=== PATIENT | female | born 1985 | race Caucasian/White ===

== ENCOUNTER 2018-05-19 17:43 | Emergency (ER) | payer OTHER ==
[~2018-05-19] VITALS: Ht 160 cm; Wt 77.1 kg
[2018-05-19] MEDS ORDERED: LIBRAX CAPSULE1 EACH PO (17:59)
[2018-05-19] MEDS ORDERED: FLEXERIL PO (18:00)
[2018-05-19] MEDS ORDERED: GARLIC1 EACH PO (18:00)
[2018-05-19] MEDS ORDERED: VALIUM5 MG PO (18:00)
[2018-05-19] MEDS ORDERED: WELLBUTRIN 100100 MG PO (18:00)
[2018-05-19] MEDS ORDERED: MICROGESTIN1 EAC1 PO (18:00)
[2018-05-19] MEDS ORDERED: CENTRUM SILVER1 EAC2 PO (18:00)
[2018-05-19] MEDS ORDERED: PROPRANOLOL 20M20 M1 PO (18:01)
[2018-05-19] MEDS ORDERED: LIDOCAINE VISC100 ML SWISH&SPIT (18:14)
[2018-05-19] MEDS ORDERED: HYDROCODONE-AP1 EAC6 PO (18:14)
[2018-05-19 18:53] VITALS: BP 140/80
== END 2018-05-19 18:54 | disposition home or self-care (01) ==
LOC: M.ERS 17:43
DX: S00.522A Blister (nonthermal) of oral cavity, initial encounter (principal); Z88.1 Allergy status to other antibiotic agents; X58.XXXA Exposure to other specified factors, initial encounter; Y93.89 Activity, other specified; Y92.89 Other specified places as the place of occurrence of the external cause; Y99.8 Other external cause status

== ENCOUNTER 2018-08-04 22:44 | Emergency (ER) | payer OTHER ==
[~2018-08-04] VITALS: Ht 160 cm; Wt 79.4 kg
[~2018-08-04 22:44] MED LIST: CENTRUM SILVER1 EAC2 PO; FLEXERIL PO; GARLIC1 EACH PO; HYDROCODONE-AP1 EAC6 PO; LIBRAX CAPSULE1 EACH PO; LIDOCAINE VISC100 ML SWISH&SPIT; MICROGESTIN1 EAC1 PO; PROPRANOLOL 20M20 M1 PO; VALIUM5 MG PO; WELLBUTRIN 100100 MG PO
[2018-08-04] MEDS ORDERED: DEPAKOTE500 MG PO (22:58)
[2018-08-04] MEDS ORDERED: WELLBUTRIN XL300 MG PO (22:58)
[2018-08-04] MEDS ORDERED: FLEXERIL PO (22:58)
[2018-08-04] MEDS ORDERED: LIBRAX (22:58)
[2018-08-04] MEDS ORDERED: GABAPENTIN 100100 MG PO (22:59)
[2018-08-04] MEDS ORDERED: JUNEL FE 1-201 EACH PO (22:59)
[2018-08-04] MEDS ORDERED: MULTIVITAMINS1 EAC7 PO (22:59)
[2018-08-04] MEDS ORDERED: GARLIC1 EACH PO (22:59)
[2018-08-04] MEDS ORDERED: IRON325 PO (22:59)
[2018-08-04] MEDS ORDERED: PROPRANOLOL 1010 MG PO (23:00)
[2018-08-04 23:23] LABS: HEMATOCRIT 38.6 % (37.0-47.0); HEMOGLOBIN 12.8 gm/dL (12.0-15.0); MCH 32.8 pg (26.0-34.0); MCHC 33.3 g/dL (28.0-37.0); MCV 98.5 fL (80.0-100.0); MPV 7.6 fl. (7.2-11.1); NUCLEATED RBCS 0 /100WBC; PLATELET COUNT* 242 thou/uL (150-400); RBC 3.91 mil/uL (4.20-5.00); RDW-CV 13.3 % (10.5-14.5); WBC 14.5 thou/uL (4.0-11.0)
[2018-08-04 23:28] LABS: URINE BILIRUBIN NEGATIVE (Negative); URINE BLOOD 2+ (Negative); URINE CLARITY SL CLOUDY; URINE COLOR YELLOW; URINE GLUCOSE-RANDOM NEGATIVE (Negative); URINE KETONES TRACE (Negative); URINE PROTEIN 2+ (Negative)
[2018-08-04 23:29] LABS: CALCIUM 8.5 mg/dL (8.5-10.1); POTASSIUM 3.6 mmol/L (3.5-5.1)
[2018-08-04 23:32] LABS: URINE LEUKOCYTES-REFLEX 3+ (Negative); URINE NITRITE-REFLEX POSITIVE (Negative)
[2018-08-04 23:34] LABS: ALBUMIN 2.9 g/dL (3.4-5.0); TOTAL BILIRUBIN 0.3 mg/dL (<0.1-1.0); TOTAL PROTEIN 7.1 g/dL (6.4-8.2)
[2018-08-04 23:41] LABS: CASTS None Seen /LPF (None Seen); SQUAMOUS 4-10 Moderate /LPF (0-3)
[2018-08-04 23:42] LABS: BACTERIA-REFLEX >30 Many /HPF (None Seen); CRYSTALS None Seen /LPF (None Seen); URINE RBC 3-10 Few /HPF (0-2); URINE WBC-REFLEX >25 Many /HPF (0-5)
[2018-08-05] MEDS ORDERED: ZOFRAN ODT4 MG PO (00:05)
[2018-08-05] MEDS ORDERED: KEFLEX500 M1 PO (00:05)
[2018-08-05] MEDS ORDERED: NORCO 5-325 TA1 EACH PO (00:05)
[2018-08-05 00:16] VITALS: BP 133/84
[2018-08-05 00:49] LABS: ABSOLUTE BASOPHILS 0.1 thou/uL (0.0-0.2); ABSOLUTE LYMPHOCYTES 0.7 thou/uL (0.8-5.3); ABSOLUTE MONOCYTES 0.1 thou/uL (0.0-1.2); ABSOLUTE NEUTROPHILS 13.5 thou/uL (1.6-8.1); PLATELET ESTIMATE ADEQUATE
== END 2018-08-05 00:16 | disposition home or self-care (01) ==
LOC: M.ERS 22:44
PROVIDERS: Emergency Medicine Emergency Medical Services
DX: N12 Tubulo-interstitial nephritis, not specified as acute or chronic (principal); N80.9 Endometriosis, unspecified; Z88.1 Allergy status to other antibiotic agents; Z88.8 Allergy status to other drugs, medicaments and biological substances

== ENCOUNTER 2018-08-11 05:17 | Inpatient (IN) | payer OTHER, MEDICAID ==
[~2018-08-11] VITALS: Ht 160 cm; Wt 79.4 kg
[~2018-08-11 05:17] MED LIST changes: +DEPAKOTE500 MG PO; +GABAPENTIN 100100 MG PO; +IRON325 PO; +JUNEL FE 1-201 EACH PO; +KEFLEX500 M1 PO; +LIBRAX; +MULTIVITAMINS1 EAC7 PO; +NORCO 5-325 TA1 EACH PO; +PROPRANOLOL 1010 MG PO; +WELLBUTRIN XL300 MG PO; +ZOFRAN ODT4 MG PO
[2018-08-11 05:28] VITALS: BP 117/75
[2018-08-11 05:41] LABS: URINE BILIRUBIN NEGATIVE (Negative); URINE BLOOD NEGATIVE (Negative); URINE CLARITY CLEAR; URINE COLOR YELLOW; URINE GLUCOSE-RANDOM NEGATIVE (Negative); URINE KETONES NEGATIVE (Negative); URINE LEUKOCYTES-REFLEX NEGATIVE (Negative); URINE NITRITE-REFLEX NEGATIVE (Negative); URINE PROTEIN TRACE (Negative); URINE SPECIFIC GRAVITY 1.025 (1.005-1.030)
[2018-08-11 06:02] LABS: HEMATOCRIT 31.3 % (37.0-47.0); HEMOGLOBIN 9.9 gm/dL (12.0-15.0); MCH 32.5 pg (26.0-34.0); MCHC 31.6 g/dL (28.0-37.0); MCV 102.6 fL (80.0-100.0); MPV 7.5 fl. (7.2-11.1); NUCLEATED RBCS 0 /100WBC; PLATELET COUNT* 286 thou/uL (150-400); RBC 3.05 mil/uL (4.20-5.00); RDW-CV 13.9 % (10.5-14.5)
[2018-08-11 06:07] LABS: ANION GAP 9 mmol/L (7-16); BUN 15 mg/dL (7-18); CALCIUM 8.2 mg/dL (8.5-10.1); CHLORIDE 107 mmol/L (98-107); CO2 25 mmol/L (21-32); GLUCOSE 74 mg/dL (70-99); POTASSIUM 4.4 mmol/L (3.5-5.1); SODIUM 141 mmol/L (136-145)
[2018-08-11 06:14] LABS: ALBUMIN 2.2 g/dL (3.4-5.0); ALKALINE PHOSPHATASE 46 U/L (46-116); LIPASE 109 U/L (73-393); SGOT 12 U/L (15-37); SGPT 13 U/L (30-65); TOTAL BILIRUBIN 0.1 mg/dL (<0.1-1.0); TOTAL PROTEIN 6.7 g/dL (6.4-8.2); TROPONIN-I LEVEL <0.06 ng/mL (<0.06)
[2018-08-11 06:26] LABS: AMP/METHAMP Negative (Negative); BARBITURATES Negative (Negative); BENZODIAZEPINES POSITIVE (Negative); COCAINE Negative (Negative); METHADONE Negative (Negative); OPIATES POSITIVE (Negative); PCP Negative (Negative); THC Negative (Negative)
[2018-08-11 06:44] LABS: ABSOLUTE BASOPHILS 0.1 thou/uL (0.0-0.2); ABSOLUTE EOSINOPHILS 0.3 thou/uL (0.0-0.7); ABSOLUTE LYMPHOCYTES 3.8 thou/uL (0.8-5.3); ABSOLUTE MONOCYTES 0.3 thou/uL (0.0-1.2); ABSOLUTE NEUTROPHILS 8.6 thou/uL (1.6-8.1); ATYPICAL LYMPHS 3 %; METAMYELOCYTES 8 %
[2018-08-11 06:47] LABS: PLATELET ESTIMATE ADEQUATE
[2018-08-11 10:18] VITALS: BP 109/61
[2018-08-11 10:46] VITALS: BP 130/52
--- NOTE | 2018-08-11 11:43 | EKG ---
[place] [address] ELECTROCARDIOGRAM REPORT Name: REA ONTIVEROS Room: [address] IN .R.#: [id number] Admission: 08/11/18 Attend Phys: Jeremy Willams, Discharge: Date of : 87 Report #: [id number] THIS REPORT FOR: //name// [facility] ED Test Date: 2018-08-11 Test Time: 06:12:59 Pat Name: REA ONTIVEROS Department: Room: [facility] Gender: F Account Auditor: : 1985 Requested By: Kelly David Order Number: [id number] MD: Seven Godfrey Measurements Intervals Rentz Rate: 87 P: 10 NJ: 134 QRS: 9 QRSD: 96 T: 11 QT: 360 QTc: 433 Interpretive Statements Sinus rhythm Borderline T abnormalities, anterior leads No previous ECG available for comparison Electronically Signed On 08-11-2018 11:43:09 CDT by Seven Godfrey [email or web address] <ELECTRONICALLY SIGNED> By: eSven Godfrey MD, [facility] 08/11/18 1143 1 1 Seven Godfrey MD, FAC /EPI
--- NOTE | 2018-08-11 14:25 | NUR ---
ALERT AND ORIENTED X4. UP STAND BY ASSIST IN ROOM. IV IS PATENT AND INFUSING. PAIN BEING MANAGED WITH IV PAIN MEDICATION. DENIES NAUSEA. VSS ON ROOM AIR. HOURLY ROUNDS HAVE BEEN MAINTAINED SINCE ARRIVING ON UNIT. CALL LIGHT IS WITHIN REACH. NURSING WILL CONTINUE TO MONITOR.
--- NOTE | 2018-08-11 14:26 | NUR ---
PATIENT ARRIVED TO UNIT AT 1030. ALERT AND ORIENTED X4. UP STAND BY ASSIST TO THE BATHROOM. IV IS PATENT AND INFUSING. PAIN BEING MANAGED WITH IV MEDICATION. DENIES NAUSEA AT THIS TIME, RECIEVED IV NAUSEA MEDICATION IN THE ER. VSS ON ROOM AIR. PATIENT HAS BEEN ORIENTED TO ROOM. CALL LIGHT IS WITHIN REACH. NURSING WILL CONTINUE TO MONITOR.
[2018-08-11 17:13] VITALS: BP 100/61
--- NOTE | 2018-08-11 19:07 | NUR ---
RECIEVED REPORT FROM ONOFRE AT 1500. AGREE WITH PREVIOUS NURSE. PAIN WELL CONTROLLED WITH PAIN MEDS. ADVANCED TO REG DIET, NO NAUSEA AND VOMITING. WALKED THE HALLS. COMPLETED HOURLY ROUNDING. CALL LIGHT WITHIN REACH. WILL CONTINUE TO MONITOR.
[2018-08-11 20:21] LABS: HEMATOCRIT 27.1 % (37.0-47.0); HEMOGLOBIN 9.1 gm/dL (12.0-15.0); MCH 32.9 pg (26.0-34.0); MCHC 33.6 g/dL (28.0-37.0); MCV 97.8 fL (80.0-100.0); MPV 7.3 fl. (7.2-11.1); RBC 2.77 mil/uL (4.20-5.00); RDW-CV 13.1 % (10.5-14.5); WBC 12.8 thou/uL (4.0-11.0)
[2018-08-11 20:30] VITALS: BP 85/54
[2018-08-11 23:40] VITALS: BP 88/43
[2018-08-12 00:43] VITALS: BP 96/43
[2018-08-12 04:00] VITALS: BP 101/54; BP 102/48; BP 91/51
[2018-08-12 04:22] LABS: HEMATOCRIT 28.7 % (37.0-47.0); HEMOGLOBIN 9.4 gm/dL (12.0-15.0); MCH 32.4 pg (26.0-34.0); MCHC 32.7 g/dL (28.0-37.0); MCV 99.1 fL (80.0-100.0); MPV 7.5 fl. (7.2-11.1); PLATELET COUNT* 318 thou/uL (150-400); RBC 2.89 mil/uL (4.20-5.00); RDW-CV 13.2 % (10.5-14.5); WBC 13.6 thou/uL (4.0-11.0)
[2018-08-12 04:38] LABS: CALCIUM 7.7 mg/dL (8.5-10.1); CREATININE 0.8 mg/dL (0.6-1.3); MAGNESIUM 1.6 mg/dL (1.8-2.4); TOTAL BILIRUBIN 0.1 mg/dL (<0.1-1.0); TOTAL PROTEIN 6.2 g/dL (6.4-8.2)
[2018-08-12 06:08] LABS: APTT 29.1 Seconds (25.0-31.3); PROTIME 10.3 Seconds (9.20-11.50)
[2018-08-12 06:16] LABS: ABSOLUTE NEUTROPHILS 8.7 thou/uL (1.6-8.1); POLYS 64.3 %
[2018-08-12 06:17] LABS: ABSOLUTE BASOPHILS 0.1 thou/uL (0.0-0.2); ABSOLUTE EOSINOPHILS 0.1 thou/uL (0.0-0.7); ABSOLUTE LYMPHOCYTES 3.6 thou/uL (0.8-5.3); ABSOLUTE MONOCYTES 1.1 thou/uL (0.0-1.2); BASOPHILS 0.4 %; EOSINOPHILS 0.8 %; LYMPHOCYTES 26.5 %
--- NOTE | 2018-08-12 06:45 | NUR ---
ASSUMED PT CARE AT 2014. NURSING ASSESSMENT COMPLETED. PT C/O PAIN. SEE EMAR FOR DOCUMENTATION. PT TEMP 101.1 AT 0400. SEPSIS SCREENING COMPLETED AT 0447. PT POSITIVE FOR SEPSIS. DR. TRAYLOR NOTIFIED. NEW ORDERS RECEIVED. ID CONSULT. HOURLY ROUNDING COMPLETED. CALL LIGHT WITHIN REACH.
[2018-08-12 15:59] VITALS: BP 97/55
--- NOTE | 2018-08-12 16:46 | NUR ---
ASSUMED CARE OF PATIENT AT APPROX 0800. ALERT AND ORIENTED X4. ASSESSMENT COMPLETED AND CHARTED. VSS ON ROOM AIR. PATIENT HAS HAD MANY COMPLAINTS THROUGHOUT THE SHIFT FOR THIS NURSE, CALLING MULTIPLE TIMES AND ASKING THE SAME QUESTIONS REPEATEDLY. PHYSICIANS CONTACTED AND SPOKE TO PATIENT ABOUT HER QUESTIONS. DR AGUILAR ADDED XANAX TO PATIENTS MEDICATON TO ADDRESS HER ANXIETY. PAIN AND NAUSEA HAVE BEEN MANAGED WITH MEDICATIONS. NO COMPLAINTS OF SOA. HOURLY ROUNDS MAINTAINED, CALL LIGTH WITHIN REACH, NURSING WILL CONTINUE TO MONITOR.
[2018-08-12 20:00] VITALS: BP 80/49
[2018-08-13 04:37] LABS: HEMATOCRIT 26.6 % (37.0-47.0); HEMOGLOBIN 8.9 gm/dL (12.0-15.0); MCHC 33.4 g/dL (28.0-37.0); MCV 98.9 fL (80.0-100.0); MPV 7.5 fl. (7.2-11.1); RBC 2.69 mil/uL (4.20-5.00); RDW-CV 12.8 % (10.5-14.5); WBC 10.7 thou/uL (4.0-11.0)
[2018-08-13 06:05] LABS: CALCIUM 7.7 mg/dL (8.5-10.1); CREATININE 0.8 mg/dL (0.6-1.3); MAGNESIUM 1.6 mg/dL (1.8-2.4); POTASSIUM 4.4 mmol/L (3.5-5.1)
--- NOTE | 2018-08-13 06:49 | NUR ---
PATIENT HAS BEEN RESTLESS OFF AND ON DURING SHIFT. PAIN MEDICATION GIVEN ORDERED AND CHARTED. VSS ON RA, ALTHOUGH BP WAS LOW AND NOTIFIED AND BOLUS GIVEN. IV IN RIGHT AC-NS @ 150ML/HR. PATIENT INSTRUCTED TO USE CALL LIGHT WHEN NEEDING ASSISTANCE. HOURLY ROUNDS MADE. WILL CONTINUE WITH PLAN OF CARE AND NURSING TO MONITOR.
--- NOTE | 2018-08-13 10:49 | CON ---
[address] [address] CONSULTATION Name: RAMAREA Smith Room: [address] IN ..#: [id number] Admission: 08/11/18 Attend Phys: Jeremy Willams, Discharge: Date of : 87 Report #: [id number] THIS REPORT FOR: //name// CC: Shaun CASTELLON Physician staff Jeremy Willams DATE OF SERVICE: 08/12/2018 UROLOGY CONSULTATION REFERRING PHYSICIAN: Dr. Willams. REASON FOR CONSULTATION: Right renal lesion. HISTORY OF PRESENT ILLNESS: This is a 32-year-old female admitted with multiple medical problems. She complains of approximately 1 week history of right-sided flank pain and abdominal pain. She denies dysuria or hematuria. She said she had fever to 103 at home. She reports urinary frequency and urgency, but denies a sensation of incomplete emptying. She states she has had UTIs in the past. She also states she has had kidney stones in the past, but has not required procedures for these. Urology was consulted regarding a right renal lesion noted on imaging. The patient does not have any prior knowledge of this. She denies any history of renal surgery or urinary tract surgery. She has had pelvic surgery due to endometriosis. PAST MEDICAL HISTORY: As above. She also has a history of bipolar disorder, degenerative disk disease, arthritis, migraine, anemia and reports a history of intestinal adhesions. ALLERGIES: AMOXICILLIN, CIPRO, AND DOXYCYCLINE. MEDICATIONS: List reviewed. She has been started on aztreonam by the primary service. SOCIAL HISTORY: She denies use of alcohol, but smokes tobacco. FAMILY HISTORY: She does not know of any history of renal lesions in the family, but does report a family history of renal disease, though she is not sure of the exact nature of that. REVIEW OF SYSTEMS: As per the history of present illness. She denies chest pain, shortness of breath, cough or palpitations. Reports nausea and abdominal pain. Denies diarrhea or constipation. PHYSICAL EXAMINATION: [place] [address] CONSULTATION Name: REA ONTIVEROS Room: [address] IN [facility].#: [id number] Admission: 08/11/18 Attend Phys: Jeremy Willams, Discharge: Date of : 87 Report #: [id number] VITAL SIGNS: Temperature 97.2, pulse 96, respirations 18, blood pressure 101/54. GENERAL: This is a 32-year-old female, in no acute distress. She is awake, alert and answers questions appropriately. HEENT: Normocephalic, atraumatic. Extraocular movements are intact. Oropharynx is clear. NECK: Supple. No JVD. RESPIRATORY: Effort and excursion are normal. CARDIOVASCULAR: Rhythm is regular. Radial pulses are palpable. EXTREMITIES: Warm. She moves all extremities. No peripheral edema. No clubbing or cyanosis. ABDOMEN: Soft and nondistended. She is tender in the right upper and lower quadrant without guarding or rebound. She does not have spine or costovertebral angle tenderness. Bladder is nonpalpable. PELVIC: Deferred. LABORATORY DATA: Include a urinalysis which is unremarkable for suspicion of infection. Sodium 141, potassium 4.0, chloride 106, CO2 of 28, BUN 8, creatinine 0.8, glucose 93. Hemoglobin 9.4, white count 13.6, platelet count 318,000. Contrast CT scan of the abdomen and pelvis, renal ultrasound, MRI with contrast of the abdomen were reviewed. These reveal a tiny nonobstructing right renal stone. There is also a 22 x 14 x 9 mm complex right lower pole lesion with a small area of equivocal enhancement. Radiologist indicates this may represent a complex cyst and recommends followup MRI with and without contrast in approximately 3 months. Findings were discussed at length with the patient. IMPRESSION: 1. Right renal lesion. See discussion above. We discussed options for management including conservative followup with observation, image-guided biopsy and/or ablation, partial/possible radical nephrectomy. The advantages, disadvantages, risks and benefits of these approaches were discussed. The radiologist's recommendation regarding 3-month MRI with and without contrast is certainly reasonable. The patient is agreeable with this. I have ordered followup in my office in approximately 3 months at which time we can set up repeat imaging and advised the patient regarding the importance of compliance. 2. Right flank pain and fever with UA not suspicious for infection and imaging findings not suspicious for pyelonephritis or renal source. Flank pain and fever are not likely related to her cystic lesion or urologic in nature. Infectious Disease and GI have been consulted. Urology will sign off at this time. Please contact us with questions or concerns. <ELECTRONICALLY SIGNED> By: Cade Tiwari MD 08/13/18 1049 1334 1830Cade Tiwari MD /nt
[2018-08-13 10:53] VITALS: BP 122/69
--- NOTE | 2018-08-13 13:45 | CON ---
[address] [address] CONSULTATION Name: ONTIVEROS,REA M Room: [address] IN ..#: [id number] Admission: 08/11/18 Attend Phys: Jeremy Willams, Discharge: Date of : 87 Report #: [id number] THIS REPORT FOR: //name// CC: Shaun CASTELLON Physician staff Jeremy Willams DATE OF SERVICE: 08/12/2018 REASON FOR CONSULTATION: Pyelonephritis, fever. HISTORY OF PRESENT ILLNESS: A 32-year-old presents with dysuria and right flank pain. Onset of symptoms began 2 weeks ago. Noticed urinary hesitancy, frequency, and dysuria. Then, developed right-sided flank pain. This is associated with fever and chills. She presented on 08/04/2018 to the Emergency Room, was found to have pyuria, bacteriuria. Urine culture was not performed. No blood cultures were ordered. Treated with cephalexin. Initially, had some improvement, although developed discomfort in her chest and upper abdomen. She returned because of these symptoms. She has had nausea without vomiting. No diarrhea. Pain is in the right flank along with the lower abdominal pelvis. She has had no blood in her urine. The dysuria has improved. Her urinary frequency and hesitancy has improved. Still had temperature up to 38 degrees yesterday. Hemodynamically, she has remained stable. Appetite still is poor, although her nausea has improved. The patient has a history of recurrent urinary tract infections. She has had nephrolithiasis on 3 occasions. Also, endometriosis. During her initial evaluation, CT scan showed a cystic mass in the right kidney. This was further evaluated by ultrasound and MRI scan. Still inconclusive, but suspecting cystic lesion. There may be a component of a solid portion as well. Plan radiographically was to repeat a scan in 3 months. ALLERGIES: THE PATIENT HAS MULTIPLE ALLERGIES INCLUDING AUGMENTIN, LEVAQUIN AND DOXYCYCLINE WITH GI UPSET. No rashes or true allergic reactions have been identified. MEDICATIONS: As noted on her MAR, now on aztreonam. PAST MEDICAL HISTORY: Nephrolithiasis, urinary tract infection, endometriosis, bipolar disorder, migraine headaches, chronic neck and back pain, anemia. FAMILY HISTORY: Noncontributory. SOCIAL HISTORY: Smoker of cigarettes. No significant alcohol intake, 2 young children at home. REVIEW OF SYSTEMS: SKIN: [place] [address] CONSULTATION Name: REA ONTIVEROS Room: [address]#: [id number] Admission: 08/11/18 Attend Phys: Jeremy Willams, Discharge: Date of : 87 Report #: [id number] HEENT: No visual changes, no oral lesions or mucositis. No adenopathy. CHEST and LUNGS: Denies any cough or sputum production. CARDIOVASCULAR: No palpitations, syncope, hypertension, congestive heart failure symptoms. GASTROINTESTINAL: As above. GENITOURINARY: As above. MUSCULOSKELETAL: Negative. ENDOCRINE: Negative. PSYCHIATRIC: Her bipolar disorder is under good control. NEUROLOGIC: Negative. PHYSICAL EXAMINATION: VITAL SIGNS: Afebrile and hemodynamically stable. Last blood pressure this afternoon was 97/55 with a pulse of 87. GENERAL: Alert, cooperative, white female, appeared her stated age. SKIN: Without rash or lesion. HEENT: No palpable adenopathy. Eyes without scleral icterus or conjunctivitis. MOUTH: Without mucositis or lesion. NECK: Supple, no thyromegaly or mass. LUNGS: Clear. HEART: Regular, without murmur. ABDOMEN: Soft, tender in the right lower abdomen and right CVA with palpation tenderness as well as percussion tenderness. EXTREMITIES: Unremarkable with no edema or cyanosis. NEUROLOGIC: Nonfocal with no cranial nerve abnormalities. Strength was normal throughout. Sensation normal throughout. LABORATORY STUDIES: Creatinine 0.8. Liver function test normal. Hemoglobin 9.4, platelet count 318,000, white count 13.6. Urinalysis unremarkable. Blood cultures are pending. MRI scan as noted above with a 1.4 x 0.9 x 2.2 cm cystic mass, right kidney. One small stone, which was nonobstructing. IMPRESSION: A 32-year-old with persistent fever, right flank pain. Still suspect urinary tract infection as the source. Other consideration would be GI etiology, although CT scan showed no evidence of colonic abnormalities or small-bowel obstruction. I do not think we are dealing with gallbladder disease for as there is no changes on imaging studies and no increase in her liver function test. She has no pain to her right upper quadrant. Endometriosis also a consideration, but typically not associated with fever or leukocytosis. We therefore recommend continuing antibiotic coverage. We will need to repeat her urinalysis and urine culture to see if we are dealing with any resistant organism. Continue with ceftriaxone for as she has no true penicillin allergy. I doubt we are dealing with pseudomonal infection. We will need to follow her [address] [place] [address] CONSULTATION Name: REA ONTIVEROS Room: [address] IN [facility].#: [id number] Admission: 08/11/18 Attend Phys: Jeremy Willams, Discharge: Date of : 87 Report #: [id number] symptoms over time. It does appear that she has improved over the last 24 hours per patient report. <ELECTRONICALLY SIGNED> By: Ted Macias MD 08/13/18 1345 1608 [id number] Macias MD /nt
[2018-08-13 15:53] VITALS: BP 100/56
--- NOTE | 2018-08-13 16:50 | NUR ---
ASSUMED CARE OF PATIENT AFTE RMORNING REPORT AT APPROX 0730. ALERT AND ORIENTED X4. ASSESSMENT COMPLETED AND CHARTED. VSS ON ROOM AIR. NO COMPLAINTS OF SOA OR NAUSEA THIS SHIFT. PAIN HAS BEEN MANAGED WITH MEDICATION. PATIENT DOES HAVE SOME ANXIETY WHICH HAS BEEN MANAGED WITH MEDICATIONS. FLUIDS AND ANTIBIOTICS INFUSED ORDERED. PATIENT SHOWERED THIS AFTERNOON. HOURLY ROUNDS MAINTAINED, CALL IGHT WITHIN REACH, NURSING WILL CONTINUE TO MONITOR.
[2018-08-13 22:30] VITALS: BP 123/60
[2018-08-14 04:00] VITALS: BP 144/55
[2018-08-14 05:26] LABS: HEMATOCRIT 30.6 % (37.0-47.0); MCH 32.9 pg (26.0-34.0); MCHC 32.7 g/dL (28.0-37.0); MCV 100.6 fL (80.0-100.0); RBC 3.05 mil/uL (4.20-5.00); RDW-CV 13.1 % (10.5-14.5); WBC 15.9 thou/uL (4.0-11.0)
[2018-08-14 06:05] LABS: ALBUMIN 2.3 g/dL (3.4-5.0); CALCIUM 7.6 mg/dL (8.5-10.1); CREATININE 0.7 mg/dL (0.6-1.3); MAGNESIUM 1.5 mg/dL (1.8-2.4); TOTAL BILIRUBIN 0.2 mg/dL (<0.1-1.0); TOTAL PROTEIN 6.1 g/dL (6.4-8.2)
--- NOTE | 2018-08-14 06:27 | NUR ---
UP AD YAMINI TO BEDSIDE COMMODE. PATIENT ONLY FINISHED PART OF BOWEL PREP. CURRENTLY HAVING LIQUID BROWN STOOL. CURRENTLY NPO AT THIS TIME. GIVEN IV PAIN AND NAUSEA MEDICATION WITH SOME RELIEF. CALL LIGHT WITHIN REACH.
[2018-08-14 08:00] VITALS: BP 102/52
[2018-08-14 10:29] VITALS: BP 102/47
--- NOTE | 2018-08-14 16:28 | NUR ---
ATTMEPTED TO SEE PT. SHE WAS OUT OF ROOM FOR COLONOSCOPY.
--- NOTE | 2018-08-14 16:48 | NUR ---
PATIENT HAS BEEN A/O X 4, DROWSY MOST OF SHIFT. PATIENT TAKEN FOR EGD/COLONOSCOPY THIS AFTERNOON, HAS NOT RETURNED OF YET. UP SBA TO BATHROOM. BLOOD SUGARS MONITORED, RUNNING LOW THIS SHIFT AND IV FLUIDS CHANGED THIS AM. PATIENT'S MAG REPLACED PER ELECTROLYTE PROTOCOL. HOURLY ROUNDING COMPLETED. CALL LIGHT WITHIN REACH. WILL CONTINUE WITH PLAN OF CARE.
[2018-08-14 20:15] VITALS: BP 153/62
[2018-08-14 21:35] LABS: URINE BILIRUBIN NEGATIVE (Negative); URINE BLOOD NEGATIVE (Negative); URINE CLARITY CLEAR; URINE COLOR STRAW; URINE GLUCOSE-RANDOM NEGATIVE (Negative); URINE KETONES NEGATIVE (Negative); URINE LEUKOCYTES NEGATIVE (Negative); URINE NITRITE NEGATIVE (Negative); URINE PROTEIN NEGATIVE (Negative); URINE SPECIFIC GRAVITY 1.015 (1.005-1.030); URINE UROBILINOGEN 0.2 E.U./dl (0.2-1.0)
[2018-08-15 05:09] VITALS: BP 118/54
--- NOTE | 2018-08-15 06:06 | NUR ---
PATIENT HAS REMAINED ALERT, TALKATIVE AND ORIENTED X 4 THROUGHOUT THE SHIFT. STATED HEADACHE AT HS. GOOD RELIEF WITH TYLENOL AND FLEXERIL. VALIUM ALSO PROVIDED FOR SLEEP. RESTED WELL THEN OVERNIGHT UNTIL EARLY AM. UP TO BR SBA. ADEQUATE VOIDS. 0524 REPORTS STOMACH PAIN. MEDICATED WITH IV MEDS AT PATIENT REQUEST. HAS NOT NEEDED ANYTHING FOR NAUSEA TONIGHT. IVF'S PER ORDERS(D5NS). HS BLOOD SUGAR 90 WITH SNACK PROVIDED. FEET AND HANDS REMAINS PUFFY. VITAL SIGNS STABLE. CONTINUE TO MONITOR.
[2018-08-15 07:50] VITALS: BP 136/62
[2018-08-15] MEDS ORDERED: NORCO 5-325 TA1 EACH PO (10:46)
[2018-08-15] MEDS ORDERED: CEFDINIR300 MG PO (10:46)
[2018-08-15] MEDS ORDERED: LIDODERM1 EACH TRANSDERM (10:49)
[2018-08-15 10:52] LABS: HEMATOCRIT 26.3 % (37.0-47.0); HEMOGLOBIN 8.6 gm/dL (12.0-15.0); MCH 32.5 pg (26.0-34.0); MCHC 32.6 g/dL (28.0-37.0); MCV 99.9 fL (80.0-100.0); MPV 7.7 fl. (7.2-11.1); NUCLEATED RBCS 0 /100WBC; PLATELET COUNT* 369 thou/uL (150-400); RBC 2.63 mil/uL (4.20-5.00); RDW-CV 13.5 % (10.5-14.5)
[2018-08-15 10:57] LABS: CALCIUM 7.4 mg/dL (8.5-10.1); CREATININE 0.8 mg/dL (0.6-1.3); POTASSIUM 4.5 mmol/L (3.5-5.1)
[2018-08-15] MEDS ORDERED: PANTOPRAZOLE SO40 M1 PO (11:40)
[2018-08-15 11:43] LABS: ABSOLUTE EOSINOPHILS 0.1 thou/uL (0.0-0.7); ABSOLUTE LYMPHOCYTES 3.6 thou/uL (0.8-5.3); ABSOLUTE MONOCYTES 0.4 thou/uL (0.0-1.2); ABSOLUTE NEUTROPHILS 2.9 thou/uL (1.6-8.1); ANISOCYTOSIS 1+; MYELOCYTES 1 %; PLATELET ESTIMATE ADEQUATE; POIKILOCYTOSIS 1+
[2018-08-15 12:27] VITALS: BP 136/62
[2018-08-15 12:32] VITALS: BP 136/62
[2018-08-15 13:02] VITALS: BP 136/62
--- NOTE | 2018-08-15 13:03 | NUR ---
PT GIVEN DISCHARGE INFORMATION AND PRESCRIPTIONS. PT DENIED ANY FURHTER QUESTIONS OR CONCERNS AT THIS TIME. IV REMOVED. PT LEFT WITH PARENT TO CAR.
--- NOTE | 2018-08-15 13:04 | NUR ---
NURSING DOCUMENTATION BY SUZANNE Person RN REVIEWED
--- NOTE | 2018-08-17 13:22 | CON ---
[address] [address] CONSULTATION Name: REA ONTIVEROS Room: [address] IN M.R.#: [id number] Admission: 08/11/18 Attend Phys: Jeremy Willams, Discharge: 08/15/18 Date of : 87 Report #: [id number] THIS REPORT FOR: //name// CC: Shaun CASTELLON Physician staff Jeremy Willams HISTORY OF PRESENT ILLNESS: The patient is a pleasant 32-year-old female with past medical history significant for endometriosis and previous history of abdominal adhesions, who presents with lower abdominal pain. The GI service has been consulted for evaluation of anemia. The patient denies any diarrhea, hematochezia, hematemesis, melena or change in bowel habits. She also denies any weight loss. The patient reports that she had an EGD and colonoscopy performed in 2012. The EGD was done and the patient had dilation of the esophagus performed. The patient also reports that she had 3 precancerous polyps removed from her colon at that time. PAST MEDICAL HISTORY: The patient has hemorrhage, a cyst in her kidney and pyelonephritis. PAST SURGICAL HISTORY: The patient has a previous history of lysis of adhesions in her abdomen and surgery for endometriosis and D and C. SOCIAL HISTORY: The patient smokes and is actively trying to quit. Reports occasional alcohol use and denies recreational drug use. FAMILY HISTORY: Not significant for colon cancer. REVIEW OF SYSTEMS: A comprehensive 10-point review of systems is negative, except for what is mentioned here. VITAL SIGNS: Temperature 36.8, pulse rate 96, respirations 16 and blood pressure 100/61. LABORATORY DATA: WBC count 13.0, hemoglobin 9.9, hematocrit 31.3, MCV 102.6 and platelet count 286,000. Total bilirubin 1, AST 12, ALT 13 and alkaline phosphatase 46. Urine opiate screen positive. Urine benzodiazepine screen positive. CT abdomen and pelvis, tiny right renal calculus, no definite ureteric stone, minimal pelvic free fluid. Right kidney mass with CT density - cyst. Correlation with ultrasound would be useful. Solid masses felt less likely. The mass is homogenous enhancing cyst as well. Abdomen MRI, there is a complex mass arising from the lower pole of the right kidney. Large component is cystic in appearance, without enhancement, measuring 1.4 x 0.9 x 0.2 cm. Along the inferior lateral aspect, there is a more complex lateral component which measures 6 [place] [address] CONSULTATION Name: REA ONTIVEROS Luis Room: [address]#: [id number] Admission: 08/11/18 Attend Phys: Jeremy Willams, Discharge: 08/15/18 Date of : 87 Report #: [id number] ASSESSMENT AND PLAN: 1. This is a very pleasant 32-year-old female with past medical history significant for endometriosis, status post laparoscopic cauterization, who presented with right-sided flank pain. The GI service was consulted for evaluation of anemia, following anemia workup. I have ordered iron studies and B12 and folate for further evaluation. 2. The patient had colonoscopy and precancerous polyps removed. I will obtain records of her previous colonoscopy to determine the necessary surveillance interval. Further recommendations based on the above. <ELECTRONICALLY SIGNED> By: Franco Frederick MD 08/17/18 1322 1726 0112Franco Frederick MD /nt
--- NOTE | 2018-08-18 09:09 | PATH ---
[address] [address] PATHOLOGY RPT PROCEDURE Name: ONTIVEROSREA Room: [address] IN M.R.#: [id number] Admission: 08/11/18 Date of : 87 Discharge: 08/15/18 Report #: [id number] Path Case #: [id number] [facility] Accession Number: [id number] . 01 Material submitted: . PART A: GASTRIC BIOPSY PART B: DESCENDING COLON POLYP BIOPSY . 01 Clinician provided ICD-10: R10.9 N28.1 . 01 Clinical history: . None provided . 02 Diagnosis: A. Gastric biopsy: - Mild non-specific chronic gastritis, negative for Helicobacter pylori organisms and dysplasia. . B. Descending colon polyp: - One fragment of tubular adenoma and several fragments of hyperplastic polyp(s), negative for high grade dysplasia. (WHITLEY/db; 08/15/18) LBQ/08/15/2018 . 02 Comment: Special stain on A: H. pylori immuno . 02 Electronically signed: . Steven Rdz MD, Pathologist NPI- [id number] . 01 Gross description: . A. Received in formalin labeled "Rea Ontiveros, gastric BX, rule out H. pylori," are 2 segments of valadez soft tissue measuring 1.0 x 0.3 x 0.3 cm in aggregate dimensions and measuring 0.5 cm each in maximum dimension. The specimen is submitted entirely in cassette A1. . B. Received in formalin labeled "Rea Ontiveros, descending colon polyp BX," are 3 segments of valadez soft tissue measuring 1.0 x 0.8 x 0.3 cm in aggregate dimensions and ranging from 0.3 to 0.7 cm in maximum dimension. The specimen is submitted entirely in cassette B1. (TSD; 08/14/2018) TOB/TOB . 02 Pathologist provided ICD-10: K29.50, D12.4 [place] [address] PATHOLOGY RPT PROCEDURE Name: REA ONTIVEROS Room: [address] IN [facility].#: [id number] Admission: 08/11/18 Date of : 87 Discharge: 08/15/18 Report #: [id number] Path Case #: [id number] . 02 CPT . 600009, [id number], [id number] Specimen Comment: A courtesy copy of this report has been sent to Specimen Comment: [phone], , . Specimen Comment: Report sent to , and Specimen Comment: A duplicate report has been generated due to demographic updates. Performed at: 01 [facility] [address], [place], [place] [id number] MD Javier Hurtado MD Phone: [phone] Performed at: [address] [facility] [address], [place], [place] [id number] MD Steven Rdz MD Phone: [phone]
== END 2018-08-15 13:04 | disposition home or self-care (01) | DRG 394 ==
LOC: M.ERS 05:17 → M.TBA-ER 09:30 → M.ORTHSURG 09:30
PROVIDERS: Emergency Medicine; Internal Medicine; Internal Medicine Gastroenterology; Specialist; ADMIT Family Medicine
PROC: 0DBM8ZX Excision of Descending Colon, Via Natural or Artificial Opening Endoscopic, Diagnostic (ICD-10-PCS; principal; 2018-08-14)
PROC: 0DB78ZX Excision of Stomach, Pylorus, Via Natural or Artificial Opening Endoscopic, Diagnostic (ICD-10-PCS; principal; 2018-08-14)
DX: K63.5 Polyp of colon (principal); N12 Tubulo-interstitial nephritis, not specified as acute or chronic; N28.1 Cyst of kidney, acquired; F31.9 Bipolar disorder, unspecified; M19.90 Unspecified osteoarthritis, unspecified site; G43.909 Migraine, unspecified, not intractable, without status migrainosus; N28.9 Disorder of kidney and ureter, unspecified; F17.210 Nicotine dependence, cigarettes, uncomplicated; G89.29 Other chronic pain; M46.82 Other specified inflammatory spondylopathies, cervical region; D53.9 Nutritional anemia, unspecified; M51.37 Other intervertebral disc degeneration, lumbosacral region; N20.0 Calculus of kidney; I95.9 Hypotension, unspecified; E86.9 Volume depletion, unspecified; E88.09 Other disorders of plasma-protein metabolism, not elsewhere classified; N80.9 Endometriosis, unspecified; K29.00 Acute gastritis without bleeding; Z79.899 Other long term (current) drug therapy; Z88.8 Allergy status to other drugs, medicaments and biological substances; Z87.440 Personal history of urinary (tract) infections; Z87.442 Personal history of urinary calculi

== ENCOUNTER 2018-11-10 22:50 | Emergency (ER) | payer OTHER, MEDICAID ==
[~2018-11-10] VITALS: Ht 160 cm; Wt 77.1 kg
[~2018-11-10 22:50] MED LIST changes: +CEFDINIR300 MG PO; +LIDODERM1 EACH TRANSDERM; +PANTOPRAZOLE SO40 M1 PO
[2018-11-11] MEDS ORDERED: KEFLEX500 M1 PO (00:02)
[2018-11-11] MEDS ORDERED: NORCO 7.5-3251 EACH PO (00:02)
[2018-11-11] MEDS ORDERED: BACTRIM DS TAB1 EACH PO (00:02)
[2018-11-11 00:25] VITALS: BP 123/74
== END 2018-11-11 00:26 | disposition home or self-care (01) ==
LOC: M.ERS 22:50
DX: L02.412 Cutaneous abscess of left axilla (principal); M13.88 Other specified arthritis, other site; N80.9 Endometriosis, unspecified; F31.9 Bipolar disorder, unspecified; G89.29 Other chronic pain; G43.909 Migraine, unspecified, not intractable, without status migrainosus; Z86.2 Personal history of diseases of the blood and blood-forming organs and certain disorders involving the immune mechanism; Z88.1 Allergy status to other antibiotic agents

== ENCOUNTER 2020-03-25 17:16 | Emergency (ER) | payer OTHER, MEDICAID ==
[~2020-03-25] VITALS: Ht 160 cm; Wt 78.9 kg
[~2020-03-25 17:16] MED LIST changes: +BACTRIM DS TAB1 EACH PO; +NORCO 7.5-3251 EACH PO
[2020-03-25] MEDS ORDERED: GABAPENTIN800 M1 PO (17:29)
[2020-03-25] MEDS ORDERED: TYLENOL WITH CO1 TA1 PO (17:50)
[2020-03-25] MEDS ORDERED: KEFLEX500 M1 PO (17:50)
[2020-03-25 18:01] VITALS: BP 126/57
== END 2020-03-25 18:02 | disposition home or self-care (01) ==
LOC: M.ERS 17:16
DX: K04.7 Periapical abscess without sinus (principal); N80.9 Endometriosis, unspecified; G43.909 Migraine, unspecified, not intractable, without status migrainosus; M19.90 Unspecified osteoarthritis, unspecified site; F31.9 Bipolar disorder, unspecified; Z88.1 Allergy status to other antibiotic agents; Z88.8 Allergy status to other drugs, medicaments and biological substances